=== PATIENT | male | born 1930 | race Caucasian/White ===

== ENCOUNTER 2017-11-24 22:59 | Inpatient (IN) | payer OTHER ==
[~2017-11-24] VITALS: Ht 190.5 cm; Wt 78.0 kg
[2017-11-24] MEDS ORDERED: MORPHINE SULFATE 8mg/ml INJ SDV IV ONE (23:30)
[2017-11-24] MEDS ORDERED: KETOROLAC TROMETH 30 MG/ML 1ML VIAL IV ONE (23:30)
[2017-11-24] MEDS ORDERED: ONDANSETRON HCL 4 MG/2 ML VIAL ONE (23:31)
[2017-11-24] MEDS ORDERED: ENOXAPARIN SOD 100 MG/1 ML SYRINGE SC ONE (23:45)
[2017-11-24 23:55] LABS: Basophils # (auto) 0.1 uL; Basophils % (auto) 0.8 % (0.0-2.0); Eosinophils # (auto) 0.1 uL; Eosinophils % (auto) 1.3 % (0.0-7.0); Hematocrit 38.1 % (41.0-53.0); Hemoglobin 12.4 g/dL (13.5-17.5); Lymphocytes # (auto) 1.4 uL; Lymphocytes % (auto) 13.1 % (10.0-50.0); Mean Corpuscular Hemoglobin 27.7 pg (28.0-32.0); Mean Corpuscular Hgb Conc. 32.6 g/dL (32.0-36.0); Monocytes % (auto) 9.2 % (0.0-12.0); Neutrophils # (auto) 8.2 uL; Neutrophils % (auto) 75.6 % (37.0-80.0); Platelet Count (auto) 246 10^3/uL (140-450); Red Blood Cells 4.49 10^6/uL (4.5-5.90); Red Cell Distribution Width 16.6 % (11.8-14.3); White Blood Cell 10.9 10^3/uL (4.4-10.8)
[2017-11-25] MEDS ORDERED: ONDANSETRON HCL 4 MG/2 ML VIAL IV ONE
[2017-11-25 00:08] LABS: INR 1.06 (0.9-1.15); Prothrombin Time 11.3 sec (9.27-12.13)
[2017-11-25 00:09] LABS: Calcium 8.2 mg/dL (8.5-10.1); Potassium 4.3 mmol/L (3.5-5.1)
[2017-11-25 00:10] LABS: Total Protein 7.2 g/dL (6.4-8.2)
[2017-11-25] MEDS ORDERED: TEMAZEPAM 15 MG CAP PO PRN (01:30)
[2017-11-25] MEDS ORDERED: NITROGLYCERIN 0.4 MG SL TAB SL PRN (01:30)
[2017-11-25] MEDS ORDERED: DOCUSATE SOD 100 MG CAP PO PRN (01:30)
[2017-11-25] MEDS ORDERED: MORPHINE SULFATE 8mg/ml INJ SDV IV PRN (01:30)
[2017-11-25 03:56] LABS: Urine Bacteria NONE SEEN /hpf (None Seen); Urine Blood Negative /uL (Negative); Urine Hyaline Cast FEW /lpf (0 - 2); Urine Mucus FEW (None Seen); Urine Specific Gravity 1.032 (1.001-1.035); Urine WBC 3 /hpf (0 - 3)
[2017-11-25] MEDS: SODIUM CHLORIDE 0.9% 1,000 ML IV SCH ×2 (08:10→21:04)
[2017-11-25] MEDS ORDERED: ENOXAPARIN SOD 40 MG/0.4 ML SYRINGE SC SCH (10:00)
[2017-11-25] MEDS: FAMOTIDINE 20 MG TAB PO SCH ×2 (10:52→21:04)
[2017-11-25] MEDS: ONDANSETRON HCL 4 MG/2 ML VIAL IV PRN (15:16)
[2017-11-25] MEDS: MORPHINE SULFATE 8mg/ml INJ SDV IV PRN ×2 (15:17→23:13)
[2017-11-25 16:50] VITALS: BP 169/98
[2017-11-25] MEDS ORDERED: WARFARIN SODIUM 5 MG TAB PO ONE (17:00)
[2017-11-25 21:45] VITALS: BP 146/96
[2017-11-26] MEDS: MORPHINE SULFATE 8mg/ml INJ SDV IV PRN (04:29)
[2017-11-26] MEDS: SODIUM CHLORIDE 0.9% 1,000 ML IV SCH ×2 (04:29→20:30)
[2017-11-26 04:36] VITALS: BP 152/86
[2017-11-26 06:30] LABS: Basophils # (auto) 0 uL; Basophils % (auto) 0.4 % (0.0-2.0); Eosinophils # (auto) 0.1 uL; Eosinophils % (auto) 1.2 % (0.0-7.0); Hematocrit 31.8 % (41.0-53.0); Hemoglobin 10.4 g/dL (13.5-17.5); Lymphocytes # (auto) 1.3 uL; Lymphocytes % (auto) 14.3 % (10.0-50.0); Mean Corpuscular Hemoglobin 27.5 pg (28.0-32.0); Mean Corpuscular Hgb Conc. 32.6 g/dL (32.0-36.0); Mean Corpuscular Volume 84.2 fL (80.0-100.0); Monocytes # (auto) 1.1 uL; Monocytes % (auto) 12.3 % (0.0-12.0); Neutrophils # (auto) 6.6 uL; Neutrophils % (auto) 71.8 % (37.0-80.0); Nucleated Red Blood Cells % 0.1 %; Platelet Count (auto) 203 10^3/uL (140-450); Red Blood Cells 3.77 10^6/uL (4.5-5.90); Red Cell Distribution Width 16.9 % (11.8-14.3); White Blood Cell 9.2 10^3/uL (4.4-10.8)
[2017-11-26 06:39] LABS: Albumin 2.6 g/dL (3.4-5.0); Calcium 7.9 mg/dL (8.5-10.1); Magnesium 1.9 mg/dL (1.6-2.6)
[2017-11-26 06:44] LABS: BUN/Creatinine Ratio 29.1; Bilirubin, Total 1.1 mg/dL (0.2-1.0); Total Protein 5.8 g/dL (6.4-8.2)
[2017-11-26 08:00] VITALS: BP 156/94
[2017-11-26] MEDS: FAMOTIDINE 20 MG TAB PO SCH (09:39)
[2017-11-26] MEDS ORDERED: ENOXAPARIN SOD 60 MG/0.6 ML SYRINGE SC SCH (10:00)
[2017-11-26 13:00] VITALS: BP 145/92
[2017-11-26] MEDS: ONDANSETRON HCL 4 MG/2 ML VIAL IV PRN (13:48)
[2017-11-26] MEDS: PANTOPRAZOLE 40 MG/10 ML VIAL IV SCH (14:03)
[2017-11-26] MEDS: MORPHINE SULFATE 10 MG/ML INJ 1ML SDV IV PRN (14:53)
[2017-11-26] MEDS ORDERED: MORPHINE SULFATE 10 MG/ML INJ 1ML SDV IV PRN (15:00)
[2017-11-26] MEDS ORDERED: POTA10TA51 PO (16:40)
[2017-11-26] MEDS ORDERED: MAGN400T5 OR (16:40)
[2017-11-26] MEDS ORDERED: CHOLTAB14 PO (16:40)
[2017-11-26] MEDS ORDERED: ATOR40TA52 PO (16:40)
[2017-11-26] MEDS ORDERED: FINA5TAB4 PO (16:40)
[2017-11-26] MEDS ORDERED: DILT-9 PO (16:40)
[2017-11-26] MEDS ORDERED: APIX5TAB OR (16:40)
[2017-11-26 17:00] VITALS: BP 127/87
[2017-11-26 22:00] VITALS: BP 127/87
[2017-11-27] MEDS: MORPHINE SULFATE 10 MG/ML INJ 1ML SDV IV PRN ×2 (02:53→06:41)
[2017-11-27 04:23] VITALS: BP 168/96
[2017-11-27 06:07] LABS: Basophils # (auto) 0 uL; Basophils % (auto) 0.3 % (0.0-2.0); Eosinophils # (auto) 0 uL; Eosinophils % (auto) 0.2 % (0.0-7.0); Hematocrit 33.9 % (41.0-53.0); Lymphocytes % (auto) 9.2 % (10.0-50.0); Mean Corpuscular Hemoglobin 27.6 pg (28.0-32.0); Mean Corpuscular Hgb Conc. 32.5 g/dL (32.0-36.0); Monocytes # (auto) 1.3 uL; Monocytes % (auto) 11.5 % (0.0-12.0); Neutrophils % (auto) 78.8 % (37.0-80.0); Platelet Count (auto) 212 10^3/uL (140-450); Red Blood Cells 3.99 10^6/uL (4.5-5.90); Red Cell Distribution Width 16.7 % (11.8-14.3); White Blood Cell 11.4 10^3/uL (4.4-10.8)
[2017-11-27 06:23] LABS: Calcium 8.1 mg/dL (8.5-10.1); Potassium 3.7 mmol/L (3.5-5.1)
[2017-11-27] MEDS: ONDANSETRON HCL 4 MG/2 ML VIAL IV PRN (06:26)
[2017-11-27 08:00] VITALS: BP 156/89
[2017-11-27] MEDS: PANTOPRAZOLE 40 MG/10 ML VIAL IV SCH (09:20)
[2017-11-27] MEDS ORDERED: ENOXAPARIN SOD 60 MG/0.6 ML SYRINGE SC SCH (10:00)
[2017-11-27] MEDS: SODIUM CHLORIDE 0.9% 1,000 ML IV SCH ×2 (10:23→18:13)
[2017-11-27] MEDS ORDERED: TETRACAINE 1% INJ 2 ML VIAL IJ ONE (12:40)
[2017-11-27] MEDS ORDERED: ceFAZolin 1GM/100ML 200 ML IV ONE (12:50)
[2017-11-27 13:00] VITALS: BP 165/112
[2017-11-27] MEDS ORDERED: ROPIVACAINE 0.5% (5MG/ML) 20ML AMPULE IJ ONE (13:09)
[2017-11-27] MEDS ORDERED: LIDOCAINE W/ EPINEPHRINE 2% INJ 20ML VIAL ONE (13:09)
[2017-11-27] MEDS ORDERED: MIDAZOLAM HCL 1MG/1ML-2 ML VIAL ONE (13:11)
[2017-11-27] MEDS ORDERED: GLYCOPYRROLATE 0.2 MG/ML 1ML VIAL IV ONE (13:25)
[2017-11-27] MEDS ORDERED: ROCURONIUM 10MG/ML 10ML VIAL IV ONE (13:25)
[2017-11-27] MEDS ORDERED: PROPOFOL 10 MG/ML 20 ML IV ONE (13:25)
[2017-11-27] MEDS ORDERED: NEOSTIGMINE 1 MG/ML INJ (10mg/10ML VIAL) IV ONE (13:25)
[2017-11-27] MEDS ORDERED: fentaNYL CITRATE 100 MCG/2 ML VL ONE (13:25)
[2017-11-27] MEDS ORDERED: MORPHINE SULFATE 8mg/ml INJ SDV IV PRN (15:00)
[2017-11-27] MEDS ORDERED: hydrALAZINE HCL 20 MG/ML VL IV PRN (15:00)
[2017-11-27] MEDS ORDERED: ePHEDrine SULFATE 50 MG/ML AMP IV PRN (15:00)
[2017-11-27] MEDS ORDERED: ONDANSETRON HCL 4 MG/2 ML VIAL IV ONE (15:00)
[2017-11-27 16:40] VITALS: BP 154/108
[2017-11-27] MEDS: ceFAZolin 1GM/100ML 100 ML IV SCH (18:10)
[2017-11-27 22:00] VITALS: BP 131/82
[2017-11-28] MEDS: ceFAZolin 1GM/100ML 100 ML IV SCH ×5 (00:01→23:53)
[2017-11-28] MEDS: MORPHINE SULFATE 10 MG/ML INJ 1ML SDV IV PRN ×3 (04:45→18:35)
[2017-11-28 04:57] VITALS: BP 127/77
[2017-11-28 06:02] LABS: Basophils # (auto) 0 uL; Basophils % (auto) 0.2 % (0.0-2.0); Eosinophils # (auto) 0 uL; Eosinophils % (auto) 0.3 % (0.0-7.0); Hematocrit 28.2 % (41.0-53.0); Hemoglobin 9.3 g/dL (13.5-17.5); Lymphocytes % (auto) 9.5 % (10.0-50.0); Mean Corpuscular Hemoglobin 28.2 pg (28.0-32.0); Mean Corpuscular Hgb Conc. 33.1 g/dL (32.0-36.0); Mean Corpuscular Volume 85.1 fL (80.0-100.0); Monocytes # (auto) 1.4 uL; Monocytes % (auto) 13.4 % (0.0-12.0); Neutrophils % (auto) 76.6 % (37.0-80.0); Platelet Count (auto) 189 10^3/uL (140-450); Red Blood Cells 3.31 10^6/uL (4.5-5.90); Red Cell Distribution Width 16.8 % (11.8-14.3); White Blood Cell 10.5 10^3/uL (4.4-10.8)
[2017-11-28 06:23] LABS: Potassium 3.7 mmol/L (3.5-5.1)
[2017-11-28 06:27] LABS: BUN/Creatinine Ratio 30.9; Calcium 7.8 mg/dL (8.5-10.1)
[2017-11-28] MEDS: ONDANSETRON HCL 4 MG/2 ML VIAL IV PRN (08:25)
[2017-11-28 09:00] VITALS: BP 126/60
[2017-11-28] MEDS: PANTOPRAZOLE 40 MG/10 ML VIAL IV SCH (09:27)
[2017-11-28] MEDS ORDERED: ENOXAPARIN SOD 40 MG/0.4 ML SYRINGE SC SCH (10:00)
[2017-11-28 13:00] VITALS: BP 133/76
[2017-11-28] MEDS: SODIUM CHLORIDE 0.9% 1,000 ML IV SCH (14:58)
[2017-11-28 17:00] VITALS: BP 134/67
[2017-11-28] MEDS: BOOST PLUS 8 ounce PO SCH ×2 (18:34→22:00)
[2017-11-28 22:00] VITALS: BP 130/71
[2017-11-28] MEDS ORDERED: MORPHINE SULFATE 10 MG/ML INJ 1ML SDV IV PRN (23:15)
[2017-11-29] MEDS ORDERED: MORPHINE SULFATE 4 MG/ML SYR/VIAL ONE ×2 (01:52→05:36)
[2017-11-29 04:23] VITALS: BP 133/72
[2017-11-29] MEDS: BOOST PLUS 8 ounce PO SCH (05:41)
[2017-11-29] MEDS: ceFAZolin 1GM/100ML 100 ML IV SCH (05:41)
[2017-11-29 06:13] LABS: Basophils # (auto) 0 uL; Basophils % (auto) 0.3 % (0.0-2.0); Eosinophils # (auto) 0.1 uL; Eosinophils % (auto) 1.4 % (0.0-7.0); Hematocrit 28.1 % (41.0-53.0); Hemoglobin 9.3 g/dL (13.5-17.5); Lymphocytes # (auto) 1.1 uL; Lymphocytes % (auto) 11.1 % (10.0-50.0); Mean Corpuscular Hemoglobin 29.3 pg (28.0-32.0); Mean Corpuscular Volume 88.7 fL (80.0-100.0); Monocytes # (auto) 1.1 uL; Monocytes % (auto) 11.1 % (0.0-12.0); Neutrophils # (auto) 7.8 uL; Neutrophils % (auto) 76.1 % (37.0-80.0); Nucleated Red Blood Cells % 0.1 %; Platelet Count (auto) 181 10^3/uL (140-450); Red Blood Cells 3.17 10^6/uL (4.5-5.90); Red Cell Distribution Width 17.4 % (11.8-14.3); White Blood Cell 10.2 10^3/uL (4.4-10.8)
[2017-11-29 06:27] LABS: BUN/Creatinine Ratio 30.8; Calcium 7.6 mg/dL (8.5-10.1); Potassium 3.4 mmol/L (3.5-5.1)
[2017-11-29] MEDS: SODIUM CHLORIDE 0.9% 1,000 ML IV SCH (06:29)
[2017-11-29] MEDS ORDERED: METOPROLOL TARTRATE 25 MG TAB PO ONE (07:00)
[2017-11-29] MEDS ORDERED: DILTIAZEM HCL 120MG ER CAP PO ONE (07:15)
[2017-11-29] MEDS ORDERED: APIXABAN 5 MG TAB PO SCH (10:00)
[2017-11-29] MEDS ORDERED: METOPROLOL TARTRATE 25 MG TAB PO SCH (22:00)
[2017-11-30] MEDS ORDERED: DILTIAZEM HCL 120MG ER CAP PO SCH (10:00)
== END 2017-11-29 11:47 | disposition home or self-care (01) | DRG 481 ==
LOC: EDBD 22:59 → ER 23:04 → TELE 23:05 → TELE-WESTW 11-25 16:26
PROVIDERS: ADMIT Nurse Practitioner; ATTEND Internal Medicine
PROC: 0QS606Z Reposition Right Upper Femur with Intramedullary Internal Fixation Device, Open Approach (ICD-10-PCS; principal; 2017-11-24)
DX: S72.141A Displaced intertrochanteric fracture of right femur, initial encounter for closed fracture (principal); E44.1 Mild protein-calorie malnutrition; I48.91 Unspecified atrial fibrillation; D64.9 Anemia, unspecified; F03.90 Unspecified dementia, unspecified severity, without behavioral disturbance, psychotic disturbance, mood disturbance, and anxiety; E78.5 Hyperlipidemia, unspecified; G47.00 Insomnia, unspecified; K59.00 Constipation, unspecified; I10 Essential (primary) hypertension; I25.10 Atherosclerotic heart disease of native coronary artery without angina pectoris; W18.39XA Other fall on same level, initial encounter; Y93.89 Activity, other specified; Z82.49 Family history of ischemic heart disease and other diseases of the circulatory system; Y92.89 Other specified places as the place of occurrence of the external cause; Y99.8 Other external cause status; Z88.8 Allergy status to other drugs, medicaments and biological substances; Z68.21 Body mass index [BMI] 21.0-21.9, adult
CPT/HCPCS: 36415; 71045; 73502; 76000; 80048; 80053; 81001; 83735; 85025; 85610; 87081; 93005; 93306; 96372; 96374; 96375; 97163; A4565; C1769; C9113; J0690; J1885; J2250; J2270; J2405; J2704

== ENCOUNTER 2017-12-31 00:10 | Inpatient (IN) | payer OTHER ==
[~2017-12-31] VITALS: Ht 185.4 cm; Wt 88.5 kg
[~2017-12-31 00:10] MED LIST: ATOR40TA52 PO; CHOLTAB14 PO; DILT-9 PO; FINA5TAB4 PO; MAGN400T5 OR; POTA10TA51 PO
[2017-12-31] MEDS ORDERED: SODIUM CHLORIDE 0.9% 1,000 ML IV ONE (00:30)
[2017-12-31] MEDS ORDERED: methylPREDNISolone SOD SUCC 125 MG/2 ML VL ONE (00:41)
[2017-12-31 00:45] LABS: Basophils # (auto) 0.1 uL; Basophils % (auto) 0.2 % (0.0-2.0); Eosinophils # (auto) 0 uL; Hematocrit 41.5 % (41.0-53.0); Lymphocytes % (auto) 3.9 % (10.0-50.0); Mean Corpuscular Hemoglobin 28.1 pg (28.0-32.0); Mean Corpuscular Hgb Conc. 31.3 g/dL (32.0-36.0); Mean Corpuscular Volume 89.8 fL (80.0-100.0); Monocytes # (auto) 1.4 uL; Monocytes % (auto) 5.7 % (0.0-12.0); Neutrophils # (auto) 22.3 uL; Neutrophils % (auto) 90.2 % (37.0-80.0); Platelet Count (auto) 268 10^3/uL (140-450); Red Blood Cells 4.62 10^6/uL (4.5-5.90); Red Cell Distribution Width 19.9 % (11.8-14.3); White Blood Cell 24.7 10^3/uL (4.4-10.8)
[2017-12-31] MEDS ORDERED: methylPREDNISolone SOD SUCC 125 MG/2 ML VL IV ONE (00:45)
[2017-12-31] MEDS ORDERED: MIDAZOLAM DRIP 50 mg/50mL 50 ML IV SCH ×2 (00:47→01:05)
[2017-12-31] MEDS ORDERED: MIDAZOLAM DRIP 50 mg/50mL 50 ML IV ONE (00:49)
[2017-12-31 00:59] LABS: INR 1.32 (0.9-1.15); Prothrombin Time 13.9 sec (9.27-12.13)
[2017-12-31 01:03] LABS: Urine Bacteria MANY /hpf (None Seen); Urine Blood 1+ /uL (Negative); Urine Mucus FEW (None Seen); Urine WBC 3040 /hpf (0 - 3)
[2017-12-31 01:04] LABS: Albumin 2.2 g/dL (3.4-5.0); BUN/Creatinine Ratio 23.3; Calcium 8.4 mg/dL (8.5-10.1); Potassium 4.7 mmol/L (3.5-5.1)
[2017-12-31 01:07] LABS: Urine Specific Gravity 1.021 (1.001-1.035)
[2017-12-31 01:09] LABS: Bilirubin, Total 1.5 mg/dL (0.2-1.0); Total Protein 7.4 g/dL (6.4-8.2)
[2017-12-31] MEDS ORDERED: NOREPINEPHRINE 8 MG/250ML KIT 250 ML IV SCH (01:15)
[2017-12-31 02:12] LABS: Lactic Acid w/Reflex 8.8 mmol/L (0.4-2.0)
[2017-12-31] MEDS ORDERED: SODIUM BICARBONATE 8.4% INJ 50ML SYRINGE ONE ×2 (02:12→04:37)
[2017-12-31] MEDS ORDERED: SODIUM BICARBONATE 8.4 % INJ 50ML VIAL IV ONE ×2 (02:15→04:45)
[2017-12-31] MEDS ORDERED: SODIUM CHLORIDE 0.9% 2,650 ML IV ONE (02:30)
[2017-12-31] MEDS ORDERED: cefTRIAXone 1GM/10ml IVPUSH 10 ML IV ONE (02:30)
[2017-12-31 04:13] VITALS: BP 82/54
[2017-12-31 05:44] VITALS: BP 64/47
[2017-12-31] MEDS ORDERED: AMIODARONE HCL 150 MG in D5W 5% 100 ML IV ONE (05:45)
[2017-12-31] MEDS ORDERED: SODIUM CHLORIDE 0.9% 1,000 ML IV SCH (05:45)
[2017-12-31] MEDS ORDERED: VANCOMYCIN PER PHARMACY 0 MG IV SCH (05:45)
[2017-12-31] MEDS ORDERED: NITROGLYCERIN 0.4 MG SL TAB SL PRN (05:45)
[2017-12-31] MEDS ORDERED: ONDANSETRON HCL 4 MG/2 ML VIAL IV PRN (05:45)
[2017-12-31] MEDS ORDERED: MORPHINE SULF INJ 2 MG/ML SYRINGE 1ML IV PRN (05:45)
[2017-12-31] MEDS ORDERED: AMIODARONE HCL 900 MG in DEXTROSE 500 ML IV SCH ×2 (05:49→11:49)
[2017-12-31] MEDS ORDERED: PIPERACILLIN-TAZOB 2.25GM 50 ML IV SCH (06:00)
[2017-12-31 06:05] LABS: Basophils # (auto) 0 uL; Basophils % (auto) 0.1 % (0.0-2.0); Eosinophils # (auto) 0 uL; Hemoglobin 13.2 g/dL (13.5-17.5); Lymphocytes # (auto) 0.4 uL; Monocytes # (auto) 0.3 uL; Nucleated Red Blood Cells % 0.1 %
[2017-12-31 06:07] LABS: Eosinophils % (auto) 0.1 % (0.0-7.0); Hematocrit 43.9 % (41.0-53.0); Mean Corpuscular Hemoglobin 28.7 pg (28.0-32.0); Mean Corpuscular Volume 95.7 fL (80.0-100.0); Neutrophils # (auto) 6.7 uL; Neutrophils % (auto) 89.8 % (37.0-80.0); Platelet Count (auto) 190 10^3/uL (140-450); Red Blood Cells 4.59 10^6/uL (4.5-5.90); White Blood Cell 7.4 10^3/uL (4.4-10.8)
[2017-12-31 06:11] LABS: Red Cell Distribution Width 20.5 % (11.8-14.3)
[2017-12-31] MEDS ORDERED: AMIODARONE HCL (50 MG/ ML) 3 ML VIAL IV ONE (06:13)
[2017-12-31 06:24] LABS: Albumin 1.7 g/dL (3.4-5.0); BUN/Creatinine Ratio 24.1; Bilirubin, Total 1.4 mg/dL (0.2-1.0); Calcium 8.4 mg/dL (8.5-10.1); Potassium 4.4 mmol/L (3.5-5.1); Total Protein 5.9 g/dL (6.4-8.2)
[2017-12-31] MEDS ORDERED: VANCOMYCIN 1GM/250ML 250 ML IV ONE (07:00)
[2017-12-31] MEDS ORDERED: VANCOMYCIN 1,250 MG in D5W 5% 250 ML IV ONE (07:00)
[2017-12-31] MEDS ORDERED: SODIUM BICARBONATE 8.4% INJ 50ML SYRINGE IV ONE (07:46)
[2017-12-31] MEDS ORDERED: CALCIUM CHLOR(10%) 100MG/ML 10ML SYRINGE IV ONE (07:46)
[2017-12-31] MEDS ORDERED: EPINEPHrine HCL 1 MG/10 ML SYRG IV ONE (07:46)
[2017-12-31] MEDS ORDERED: ASPirin 81 mg TAB PO SCH (10:00)
[2017-12-31] MEDS ORDERED: PANTOPRAZOLE 40 MG/10 ML VIAL IV SCH (10:00)
== END 2017-12-31 07:47 | disposition expired | DRG 871 ==
LOC: EDBD 00:10 → ER 00:10 → TELE 00:11
PROVIDERS: ADMIT Nurse Practitioner; ATTEND Nurse Practitioner
PROC: 5A12012 Performance of Cardiac Output, Single, Manual (ICD-10-PCS; principal; 2017-12-31)
PROC: 5A1935Z Respiratory Ventilation, Less than 24 Consecutive Hours (ICD-10-PCS; 2017-12-31)
PROC: 0BH17EZ Insertion of Endotracheal Airway into Trachea, Via Natural or Artificial Opening (ICD-10-PCS; 2017-12-31)
PROC: 5A09357 Assistance with Respiratory Ventilation, Less than 24 Consecutive Hours, Continuous Positive Airway Pressure (ICD-10-PCS; 2017-12-31)
DX: A41.9 Sepsis, unspecified organism (principal); R65.21 Severe sepsis with septic shock; N17.9 Acute kidney failure, unspecified; D68.9 Coagulation defect, unspecified; N39.0 Urinary tract infection, site not specified; I46.9 Cardiac arrest, cause unspecified; I48.91 Unspecified atrial fibrillation; F03.90 Unspecified dementia, unspecified severity, without behavioral disturbance, psychotic disturbance, mood disturbance, and anxiety; Z88.1 Allergy status to other antibiotic agents
CPT/HCPCS: 31500; 36415; 36600; 70450; 71045; 80053; 81001; 82140; 82805; 82962; 83605; 83735; 83880; 84484; 85025; 85379; 85610; 85730; 87040; 87070; 87077; 87186; 87205; 92950; 93005; 94002; 94003; 94660; 96361; 96374; 96375; J2250; J2543; J7060